=== PATIENT | male | born 1990 | race Two or more races ===

== ENCOUNTER 2016-11-11 21:44 | Emergency (ER) | payer SELFPAY ==
[2016-11-11 21:58] VITALS: BP 159/90; BMI 24.9
[2016-11-11] MEDS ORDERED: ZITHROMAX TAB 250 MG PO ONE ×2 (23:42→23:50)
[2016-11-11] MEDS ORDERED: ROCEPHIN VIAL 250 MG IM ONE (23:42)
--- NOTE | 2016-11-11 23:44 | DR.GENAD ---
HPI - PCP Primary Care Physician: AKILAH - HPI Comment HPI Comment: PAIN AND BURNING SENSATION IN AREA OF ULCERS. 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 Chief Complaint:: PT STATES" I GOT HIVES ON MY PENIS" Self Treatment fo Chief Complaint: PT DX WITH HERPES AT THE CLINIC IN [place] PLACED ON ANTI VIRAL - Nurses notes reviewed Nurses Notes Review: Yes - Source History Provided: Patient - Mode of Arrival Mode of Arrival: Ambulatory - Timing Onset of Chief Complaint: 09/13/16 Came on: Suddenly - Duration Duration: Constant Duration: Weeks - Severity Severity: Moderate PMH - PMH Past Medical History: No Past Surgical History: No - Family History History of Family Medical Conditions: No - Social History Alcohol Use: Occasionally Do you use any recreational Drugs:: No Lives With: Family Lives Where: Home - infectious screening In the last 2 months have you had wt loss of >10#?: NO Have you had fever, night sweats or hemotysis?: No Have you traveled outside the country in the last 6 months?: No Isolation: Standard ROS - Review of Systems Constitutional: No Symptoms Reported Eyes: No Symptoms Reported ENTM: No Symptoms Reported Respiratoy: No Symptoms Reported Cardiovascular: No Symptoms Reported Gastrointestinal/Abdominal: No Symptoms Reported Genitourinary: No Symptoms Reported Neurological: No Symptoms Reported Musculoskeletal: No Symptoms Reported Integumentary: Lesions (PAINFUL GENITAL ULCERS ON PENIS WITH URETHRAL DISCHARGE. ) Hematologic/Lymphatic: No Symptoms Reported Endocrine: No Symptoms Reported All Other Systems: Reviewed and Negative PE - Vital Signs Vitals: Temperature 98.6 F Pulse Rate 72 Respiratory Rate 18 Blood Pressure 159/90 O2 Sat by Pulse Oximetry 100 - General Limitations: No Limitations General Appearance: Alert - Head Head Exam: Normal Inspection - Eyes Eye exam: Normal Appearance - ENT ENT Exam: Normal External Ear Exam External Ear Exam: Normal External Inspection TM/Canal Exam: Bilateral Normal Nose Exam: Normal Nose Exam Mouth Exam: Normal Inspection Throat Exam: Normal Inspection - Neck Neck Exam: Normal Inspection - Chest Chest Inspection: Symmetric Chest Wall Rise - Respiratory Respiratory Exam: Normal Lung Sounds Bilat Respiratory Exam: Bilateral Clear to Auscultation - Cardiovascular Cardiovascular Exam: Regular Rate, Normal Rhythm, Normal Heart Sounds - Abdominal Exam Abdominal Exam: Normal Bowel Sounds, Soft. negative: Tenderness - Extremities Extremities Exam: Normal Inspection - Neurologic Neurological Exam: Alert, Oriented X3 - Psychiatric Psychiatric Exam: Normal Affect, Normal Mood - Skin Skin Exam: Erythema (ULCERS TENDER ON PENIS WITH URETHRAL DIACHARGE.) MDM - Additional Information Additional Information Obtained From: Family - Differential Diagnosis Differential Diagnosis: GENETAL HERPES, STD Course - Treatment Treatment: SEE ORDERS - Education/Counseling Education/Counseling: Patient, Education Educated On: Diagnosis, Needs for Follow Up ROR - Labs Reviewed Laboratory Results Reviewed?: Yes Laboratory: Ur C. trach DNA (PCR) Not detected (NOT DETECT) 11/11/16 23:44 U N.gonorrhoeae DNA PCR Not detected (NOT DETECT) 11/11/16 23:44 - Diagnosis Discharge Problem: STD (male) Genital herpes Qualifiers: Herpes simplex infection site: penis Qualified Code(s): A60.01 - Herpesviral infection of penis - Discharge Plan Disposition: HOME, SELF-CARE Condition: Stable Prescriptions: Valacyclovir HCl 1 gm PO BID #20 tab - Follow ups/Referrals Follow ups/Referrals: NFD,None [Primary Care Provider] - 2 days - Instructions Instructions: Sexually Transmitted Disease, Genital Herpes Additional Instructions: RETURN TO ED IF WORSE.
[2016-11-11] MEDS ORDERED: ROCEPHIN VIAL 1 GM ONE (23:50)
[2016-11-11] MEDS ORDERED: ROCEPHIN VIAL 1 GM IM ONE (23:58)
[2016-11-12 01:46] LABS: CHLAMYDIA TRACH URINE NOT DETECTED (NOT DETECT)
== END 2016-11-12 00:30 | disposition home or self-care (01) ==
LOC: ER 22:06
DX: A64 Unspecified sexually transmitted disease (principal); A60.01 Herpesviral infection of penis
CPT/HCPCS: 87491; 87591; 96372; 99282; Q0144; J0696